=== PATIENT | male | born 1940 | race Caucasian/White ===

== ENCOUNTER 2024-10-12 08:01 | Outpatient (CLI) | payer MEDICARE ==
[2024-10-12 09:11] LABS: Estimated GFR - POC 40.0
[2024-10-12] MEDS ORDERED: Iopamidol 300 61% 100 ML VIAL FS ONE (12:47)
== END 2024-10-12 08:02 | disposition home or self-care (01) ==
LOC: CSHCT 08:01
PROVIDERS: ATTEND Internal Medicine Hematology & Oncology
DX: C82.18 Follicular lymphoma grade II, lymph nodes of multiple sites (principal); R11.0 Nausea
CPT/HCPCS: 71260; 74177; 82565; Q9967

== ENCOUNTER 2024-11-02 10:15 | Outpatient (CLI) | payer MEDICARE | END 2024-11-02 10:16 | disposition home or self-care (01) | LOC: CSHMRI 10:15 | PROVIDERS: ATTEND Family Medicine | DX: M47.26 Other spondylosis with radiculopathy, lumbar region (principal); M48.061 Spinal stenosis, lumbar region without neurogenic claudication; M48.07 Spinal stenosis, lumbosacral region | CPT/HCPCS: 72148 ==